=== PATIENT | male | born 1980 ===

== ENCOUNTER 2019-08-25 14:06 | Outpatient (RCR) | payer OTHER, SELFPAY ==
--- NOTE | 2019-08-25 15:30 | OT.OP.EVAL ---
Visit Care Team Role Provider Type Kerwin Alarcon MD Attending Provider Non-Staff Primary Care Provider Referring Provider Specialty: Family Practice Address: [facility] [address], [place], [address] Fax: Email: Occupational Therapy Initial Evaluation OT Outpatient Adult Evaluation Start: 08/26/19 08:50 Freq: Status: Active Protocol: Document 08/25/19 15:30 AMS (Rec: 08/26/19 09:06 AMS [id number]) Assessment/Plan Treatment Assessment Patient is a 39 year-old right hand dominant male referred to outpatient OT secondary to R wrist pain as a result of power tool use. Patient reported injury occurred April 09 and he did not receive immediate care for injury. 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 While in [place], patient sought treatment d/t ongoing symptoms. He reported that while in [place] x-rays were completed; no significant findings were indicated per patient report. Patient also reported trialing splint and resting per MD recommendations ; w/ no signficant reduction in pain patient was going to start physical therapy. Patient also reported that they were going to conduct MRI if symptoms persisted. Patient reports 4/10 on pain scale pre-treatment with increasing pain/discomfort and avoidance of active weight bearing with wrist in extension. Patient reported he is currently not taking anti- inflammatory medication. Presentation w/ no tolerance for body weight bearing or limited tolerance for force application in modified form; decreased active right wrist extension. 0-55 degrees active R wrist ext versus 0-63 degrees active L wrist ext. Patient reports inability to execute push-ups and encounters pain w/ physical activity. Given previous recommendations by medical staff, length of time between injury and date of evaluation, poor tolerance for weight bearing, protective gesturing of distal dominant R UE, pain presentation, inability of patient to engage in physical tasks as required in his profession, it is recommended that further medical testing/ evaluation be completed to r/o underlying condition that is prohibiting patient from healing (MRI). Patient Recommendations Discharge from Occupational Therapy
== END 2019-09-29 12:15 ==
LOC: OT 14:06
PROVIDERS: PCP General Practice; Referring Provider General Practice; Visit Provider General Practice
DX: M25.531 Pain in right wrist (principal)
CPT/HCPCS: 97165

== ENCOUNTER → 2019-09-02 08:23 | Outpatient (CLI) | payer OTHER, SELFPAY ==
--- NOTE | 2019-09-02 | DI.MRI.S_ITS ---
PROCEDURE: MR WRIST RT W CON INDICATIONS: Right wrist pain TECHNIQUE: After the administration of 3-4 mL of dilute intra-articular Gadolinium contrast into the radiocarpal compartment, coronal T1 spin echo with fat saturation and T2 fast spin echo with fat saturation, axial T1 spin echo and T2 fast spin echo with fat saturation, sagittal T1 spin echo with and without fat saturation through the wrist. COMPARISON: None. FINDINGS: Image quality: Excellent. Bones and cartilage: The carpal bones are normally aligned. No bone marrow contusions or fractures. No evidence for avascular necrosis. Overlying cartilage surfaces appear normal. Carpal ligaments: The scapholunate ligament appears slightly thickened with subtle intrasubstance fluid signal concerning for sprain/low-grade intrasubstance partial thickness tear. The lunotriquetral ligament is intact. There is no gadolinium extravasation into the mid-carpal compartment. The radioscaphocapitate and radiolunotriquetral ligaments appear intact. The arcuate ligament and short radiolunate ligament also appear normal. The dorsal intercarpal and radiotriquetral ligaments appear intact. On sagittal images, the pisohamate ligament appears intact. Triangular fibrocartilage complex: There is focal perforation involving central portion of triangular fibrocartilage with gadolinium extravasation into the distal radioulnar joint. The adjacent meniscal homolog appears normal. The ulnar collateral ligament appears intact. The extensor carpi ulnaris tendon is normal in location and morphology. Tendons and soft tissues: The carpal tunnel structures appear normal, including the median nerve. The ulnar nerve appears normal within Guyon's canal. All six extensor tendon compartments demonstrate normal morphology, without pathologic tendon sheath fluid. No soft tissue ganglion cysts. IMPRESSION: 1. Focal triangular fibrocartilage tear near its radial insertion 2. Low-grade sprain/intrasubstance partial thickness tear versus degenerative changes involving the scapholunate ligament. Lunotriquetral ligament is intact. No contrast is seen extending to mid carpal compartment. 3. No marrow edema. No fracture or dislocation. Wrist tendons are intact. Dictated by: David Aponte M.D. on 09/02/2019 at 10:51 Approved by: David Aponte M.D. on 09/02/2019 at 11:18
--- NOTE | 2019-09-02 | DI.RAD.S_ITS ---
PROCEDURE: FL WRIST INJECTION MR/CT RT INDICATIONS: Right wrist pain TECHNIQUE: After informed consent had been obtained, the wrist was examined fluoroscopically, and a site chosen for injection of the radiocarpal compartment from a dorsal approach. Skin was prepped and draped in a sterile fashion and 1% lidocaine infiltrated from the skin down to the articular surface. A hypodermic needle was then introduced into the articular space and a modest amount of contrast medium was instilled confirming intra-articular needle tip placement. This was followed by approximately 4 mL of a dilute gadolinium solution. Needle was removed and dressing was applied. The patient experienced no complications throughout the procedure and left the fluoroscopic suite in no apparent distress. FINDINGS: A single fluoroscopic spot image demonstrates intra-articular location to injected iodinated contrast. IMPRESSION: Successful fluoroscopic-guided administration of dilute Gadolinium solution for wrist MR arthrogram. Dictated by: Madison Solitario MD, PhD on 09/04/2019 at 9:12 Approved by: Madison Solitario MD, PhD on 09/04/2019 at 9:13
== END ==
PROVIDERS: PCP General Practice; Referring Provider General Practice; Visit Provider General Practice
DX: M25.531 Pain in right wrist (principal); S63.501A Unspecified sprain of right wrist, initial encounter
CPT/HCPCS: 20605; 73222; 77002

== ENCOUNTER → 2021-03-14 10:41 | Outpatient (CLI) | payer OTHER, SELFPAY | PROVIDERS: PCP General Practice; Referring Provider Nurse Practitioner Family; Visit Provider Nurse Practitioner Family | DX: Z00.00 Encounter for general adult medical examination without abnormal findings (principal) | CPT/HCPCS: 93005; 93010 ==

== ENCOUNTER → 2021-04-10 11:38 | Outpatient (CLI) | payer OTHER, SELFPAY ==
--- NOTE | 2021-04-10 | DI.ECHO.S_ITS ---
[facility]---------+ [facility] +---------+ : : [address] : : : : [id number] : : : : Phone: [phone]+ Echocardiogram Report + + :Name: CORINNA TROY Study Date: 04/10/2021 Height: 69 in : :[facility] ReadingLocation: Weight: 215 lb : : Gender: Male BSA: 2.1 m2 : :: 1980 Age: 40 yrs BP: 135/89 mmHg: :Reason For Study: ENCOUNTER FOR GENERAL ADULT EXAMINATION : :Ordering Physician: ERLIN, : :JENNIFER Performed By: Soraya Dubois : :Referring: JENNIFER KERN : + + Interpretation Summary 1) Borderline increased left ventricular thickness (concentric) with normal size, and normal systolic function (EF 55-60%). 2) There are no obvious focal wall motion abnormalities noted but poor endocardial definition reduces the sensitivity for the detection of such. 3) Normal right ventricular size and function. 4) No significant valvular abnormalities. 5) Compared to the Echo done 07/07/2019, no significant change. Procedure: A two-dimensional transthoracic echocardiogram with color flow and Doppler was performed. The study quality was technically adequate. Comparison is made with the echocardiogram of 07/07/2019. The patient was in sinus rhythm with heart rates between 57-69 bpm during the exam. Left Ventricle: The left ventricle is normal in size. Left ventricular wall thickness is borderline increased. The ejection fraction is estimated to be 55-60%. There are no obvious focal wall motion abnormalities noted but poor endocardial definition reduces the sensitivity for the detection of such. Right Ventricle: The right ventricle is normal in size and function. Atria: The left atrial size is normal. Right atrial size is normal. There is no Doppler evidence for an interatrial shunt. Mitral Valve: The mitral valve is normal in structure and function. There is trace mitral regurgitation. Aortic Valve: The aortic valve is trileaflet. The aortic valve opens well. There is no aortic valve stenosis. No aortic regurgitation is present. Tricuspid Valve: The tricuspid valve is normal in structure and function. There is trace tricuspid regurgitation. Pulmonic Valve: The pulmonic valve leaflets are thin and pliable; valve motion is normal. There is trace pulmonic regurgitation. Great Vessels: The aortic root is normal size. The dimensions of the ascending aorta are normal. The IVC is of normal diameter and collapses greater than 50% with a sniff. This suggests a low right atrial pressure of 3 mm Hg. Pericardium/ Pleura There is no pericardial effusion. There is no pleural effusion. MMode/2D Measurements & Calculations LVIDd: 4.7 cm LVOT diam: 2.3 cm LVIDs: 3.4 cm Ao root diam: 3.4 cm FS: 26.6 % asc Aorta Diam: 3.1 cm IVSd: 1.1 cm Ao Arch Diam (Prox Trans): 2.7 cm LVPWd: 0.93 cm LV diaz. diameter/BSA (cm/m^2): 2.2 LV sys. diameter/BSA (cm/m^2): 1.6 LA A2 area: 17.7 cm2 RA long axis: 4.6 cm LA A4 area: 15.6 cm2 RA area: 15.0 cm2 LA length (vol): 4.8 cm RA vol: 42.1 ml LA vol: 48.8 ml RA : 19.8 ml/m2 LA vol index: 22.9 ml/m2 IVC diam: 1.6 cm RVD1 (basal): 3.7 cm RVD2 (mid): 3.7 cm TAPSE: 2.1 cm Doppler Measurements & Calculations Ao V2 max: 116.0 cm/sec LVOT Max Isaias: 78.2 cm/sec Ao V2 mean: 80.5 cm/sec LV V1 max P.4 mmHg Ao max P.4 mmHg LV V1 VTI: 17.3 cm Ao mean P.9 mmHg CHUY(I,D): 2.6 cm2 Ao V2 VTI: 27.3 cm CHUY(V,D): 2.8 cm2 sev ratio: 0.63 CHUY indexed to BSA (cm^2/m^2): 1.2 MV E max isaias: 58.3 cm/sec PA V2 max: 109.8 cm/sec MV A max isaias: 35.7 cm/sec PA V2 mean: 74.3 cm/sec MV E/A: 1.6 PA mean P.4 mmHg Med Peak E' Isaias: 6.4 cm/sec PA pr(Accel): 34.5 mmHg E/E' med: 9.1 Lat Peak E' Iasias: 15.7 cm/sec E/E' lat: 3.7 E/e' average: 6.4 MV dec time: 0.33 sec SVLVOT): 70.5 ml Reading Physician:03:48 PM
== END ==
PROVIDERS: PCP General Practice; Referring Provider Nurse Practitioner Family; Visit Provider Nurse Practitioner Family
DX: Z00.00 Encounter for general adult medical examination without abnormal findings (principal)
CPT/HCPCS: 93306